=== PATIENT | male | born 1960 | race Caucasian/White ===

== ENCOUNTER 2019-03-29 11:57 | Emergency (ER) | payer BC ==
[2019-03-29] MEDS ORDERED: Aspirin 81 MG Tab.Chew PO ONE (12:13)
--- NOTE | 2019-03-29 12:25 | CR ---
EXAMINATION: Chest 1V Frontal SEX: Male AGE: 58 years CLINICAL HISTORY: 58-year-old male complaining of CHEST PAIN. INTERPRETATION: External monitoring specialist leads. 1. Normal cardiac silhouette without new cephalization of flow, alveolar edema or dependent pleural effusion when compared to 14 May 2007 exam. 2. No new lung mass, hilar lymphadenopathy or focal lobar pneumonia. 3. No atelectasis/collapse. 4. No pleural reactive abnormalities. 5. No pneumothorax, pneumomediastinum or free subdiaphragmatic air. CONCLUSION: Negative exam. No acute new cardiopulmonary abnormality since PA film 14 May 2007.
[2019-03-29 12:40] LABS: CHLORIDE,CL 105 mmol/L (101-111); SODIUM,NA 138 mmol/L (135-145)
--- NOTE | 2019-03-29 13:14 | EDM.PDOC ---
ED HPI GENERAL MEDICAL PROBLEM - General Chief Complaint: Chest Pain Stated Complaint: CHEST PAIN Time Seen by Provider: 03/29/19 12:25 Source of Information: Reports: Patient History Limitations: Reports: No Limitations - History of Present Illness INITIAL COMMENTS - FREE TEXT/NARRATIVE: This 58 yo male patient reports to the ED with intermittent left sided chest pain. The patient reports his symptoms started last (03/24/19) and have been intermittent since that time. The patient reports he was shoveling snow last week before his symptoms started. Today, the patient reports he was at work when his symptoms started as pain in his left upper chest that radiated to his left arm. The patient also reports he has been having some nausea, increased gas and abdominal pain over the past week. Onset Date: 03/24/19 Duration: Intermittent Location: Reports: Chest (left upper chest) Quality: Reports: Ache, Dull Severity: Moderate Improves with: Reports: None Worsens with: Reports: None Context: Reports: Other Associated Symptoms: Reports: No Other Symptoms - Related Data Allergies Allergy/AdvReac Type Severity Reaction Status Date / Time amoxicillin Allergy Mild Rash Verified 03/29/19 12:02 Home Meds: Home Meds Aspirin [Aspirin EC] 325 mg PO DAILY 03/29/19 [History] Enalapril Maleate 5 mg PO DAILY 03/29/19 [History] Fenofibrate Nanocrystallized [Fenofibrate] PO DAILY 03/29/19 [History] Fenofibrate Nanocrystallized [Tricor] 145 mg PO DAILY 03/29/19 [History] Metoprolol Succinate 50 mg PO DAILY 03/29/19 [History] atorvaSTATin Calcium [Atorvastatin Calcium] 10 mg PO DAILY 03/29/19 [History] Past Medical History HEENT History: Reports: Impaired Vision Cardiovascular History: Reports: [place] Respiratory History: Reports: None Gastrointestinal History: Reports: Other (See Below) Other Gastrointestinal History: heartburn Genitourinary History: Reports: None Musculoskeletal History: Reports: Arthritis, Fracture, Other (See Below) Other Musculoskeletal History: Torn bursa in LEFT shoulder with muscle detachment and tears in rotar cuff. RIGHT hand fracture. Neurological History: Reports: Concussion Psychiatric History: Reports: None Endocrine/Metabolic History: Reports: None Hematologic History: Reports: None Immunologic History: Reports: None Oncologic (Cancer) History: Reports: Basal Cell Carcinoma, Squamous Cell Carcinoma Other Oncologic History: nose - Infectious Disease History Infectious Disease History: Reports: Chicken Pox, Mumps - Past Surgical History Head Surgeries/Procedures: Reports: None HEENT Surgical History: Reports: Other (See Below) Other HEENT Surgeries/Procedures: throat-Malik Disease Cardiovascular Surgical History: Reports: Coronary Artery Stent Other Cardiovascular Surgeries/Procedures: [place] x2 Respiratory Surgical History: Reports: None GI Surgical History: Reports: None Neurological Surgical History: Reports: None Other Musculoskeletal Surgeries/Procedures:: LEFT knee surgery, Dermatological Surgical History: Reports: Skin Biopsy Social & Family History - Family History Family Medical History: Noncontributory - Tobacco Use Smoking Status *Q: Current Every Day Smoker Years of Tobacco use: 44 Packs/Tins Daily: 1 Second Hand Smoke Exposure: No - Caffeine Use Caffeine Use: Reports: Soda - Recreational Drug Use Recreational Drug Use: No ED ROS GENERAL - Review of Systems Review Of Systems: Comprehensive ROS is negative, except as noted in HPI. ED EXAM, GENERAL - Physical Exam Exam: See Below Exam Limited By: No Limitations General Appearance: Alert, WD/WN, Mild Distress Eye Exam: Bilateral Eye: EOMI, Normal Inspection, PERRL Ears: Normal External Exam, Normal Canal, Hearing Grossly Normal, Normal TMs Nose: Normal Inspection, Normal Mucosa, No Blood Throat/Mouth: Normal Inspection, Normal Lips, Normal Teeth, Normal Gums, Normal Oropharynx, Normal Voice, No Airway Compromise Head: Atraumatic, Normocephalic Neck: Normal Inspection, Supple, Non-Tender, Full Range of Motion Respiratory/Chest: No Respiratory Distress, Lungs Clear, Normal Breath Sounds, No Accessory Muscle Use, Chest Non-Tender Cardiovascular: Normal Peripheral Pulses, Regular Rate, Rhythm, No Edema, No Gallop, No JVD, No Murmur, No Rub GI/Abdominal: Tender (diffuse abdominal tenderness to palpation), Hernia (Male) Exam: Deferred Rectal (Males) Exam: Deferred Back Exam: Normal Inspection, Full Range of Motion, NT Extremities: Normal Inspection, Normal Range of Motion, Non-Tender, Normal Capillary Refill, No Pedal Edema Neurological: Alert, Oriented, CN II-XII Intact, Normal Cognition, Normal Gait, Normal Reflexes, No Motor/Sensory Deficits Psychiatric: Normal Affect, Normal Mood Skin Exam: Warm, Dry, Intact, Normal Color, No Rash Lymphatic: No Adenopathy Course - Vital Signs Last Recorded V/S: Last Vital Signs Temp 36.6 C 03/29/19 12:07 Pulse 63 03/29/19 12:07 Resp 16 03/29/19 12:07 BP 138/85 03/29/19 12:07 Pulse Ox 96 03/29/19 12:07 - Orders/Labs/Meds Orders: Active Orders 24 hr Category Date Time Status EKG Documentation Completion [RC] URGENT Care 03/29/19 11:58 Ordered Labs: Laboratory Tests 03/29/19 03/29/19 Range/Units 12:02 12:02 WBC 16.3 H (5.0-10.0) 10^3/uL RBC 5.69 (4.6-6.2) 10^6/uL Hgb 17.8 (14.0-18.0) g/dL Hct 51.1 (40.0-54.0) % MCV 89.8 (80-100) fL MCH 31.3 (27.0-34.0) pg MCHC 34.8 (33.0-35.0) g/dL Plt Count 259 (150-450) 10^3/uL Neut % (Auto) 66.3 (42.2-75.2) % Lymph % (Auto) 22.6 (20.5-50.1) % Harlan % (Auto) 9.4 H (2-8) % Eos % (Auto) 1.5 (1.0-3.0) % Baso % (Auto) 0.2 (0.0-1.0) % Sodium 138 (135-145) mmol/L Potassium 4.0 (3.6-5.0) mmol/L Chloride 105 (101-111) mmol/L Carbon Dioxide 25.0 (21.0-31.0) mmol/L Anion Gap 12.0 BUN 17 (7-18) mg/dL Creatinine 0.9 (0.6-1.3) mg/dL Est Cr Clr Drug Dosing 92.38 mL/min Estimated GFR (MDRD) > 60 BUN/Creatinine Ratio 18.88 Glucose 93 (74-105) mg/dL Calcium 9.2 (8.4-10.2) mg/dl Total Bilirubin 0.7 (0.2-1.0) mg/dL AST 23 (10-42) IU/L ALT 20 (10-60) IU/L Alkaline Phosphatase 45 (42-121) IU/L Troponin I < 0.02 (0.00-0.02) ng/ml Total Protein 7.4 (6.7-8.2) g/dl Albumin 4.4 (3.2-5.5) g/dl Globulin 3.0 Albumin/Globulin Ratio 1.47 Meds: Medications Discontinued Medications Generic Name Dose Route Start Last Admin Trade Name Freq PRN Reason Stop Dose Admin Aspirin 324 mg 03/29/19 12:13 03/29/19 12:18 Aspirin PO 03/29/19 12:14 324 mg ONETIME ONE Administration Departure - Departure Time of Disposition: 13:09 Disposition: Home, Self-Care 01 Condition: Fair Clinical Impression: Nonspecific chest pain, PUD (peptic ulcer disease) Instructions: Nonspecific Chest Pain, [id number] Forms: ED Department Discharge Care Plan Goals: The patient and his were advised of the examination, lab, x-ray and EKG results during the visit. The patient was given an oral dose of aspirin while in the ED. The patient was discharged with a script for Omeprazole (20 mg) #30 to take 1 by mouth daily 20-30 minutes before eating. If the patient has any additional symptoms or concerns, the patient should either return to the emergency department or visit his primary care facility. - My Orders Last 24 Hours: My Active Orders 03/29/19 11:58 EKG Documentation Completion [RC] URGENT - Assessment/Plan Last 24 Hours: My Active Orders 03/29/19 11:58 EKG Documentation Completion [RC] URGENT
== END 2019-03-29 13:30 | disposition home or self-care (01) ==
LOC: DL.ED 11:57
DX: R07.9 Chest pain, unspecified (principal); K27.9 Peptic ulcer, site unspecified, unspecified as acute or chronic, without hemorrhage or perforation; I25.2 Old myocardial infarction; F17.210 Nicotine dependence, cigarettes, uncomplicated; Z88.1 Allergy status to other antibiotic agents; Z79.82 Long term (current) use of aspirin; Z95.5 Presence of coronary angioplasty implant and graft
CPT/HCPCS: 36415; 71045; 80053; 84484; 85025; 93005; 99285-25; A9270-GY

== ENCOUNTER 2024-01-12 05:52 | Day surgery (SDC) | payer OTHER ==
[2024-01-12] MEDS ORDERED: fentaNYL 100 MCG/2 ML SDV IV ONE (05:53)
[2024-01-12] MEDS ORDERED: Midazolam 1 MG/ML 2 ML SDV IV ONE (05:53)
[2024-01-12] MEDS: Dextrose 5%-0.45% NaCl 1,000 ML IV SCH (06:09)
[2024-01-12] MEDS ORDERED: Midazolam 1 MG/ML 2 ML SDV ONE (06:28)
[2024-01-12] MEDS ORDERED: fentaNYL 100 MCG/2 ML SDV ONE (06:28)
[2024-01-12] MEDS: fentaNYL 100 MCG/2 ML SDV IV ONE ×2 (06:55)
[2024-01-12] MEDS: Midazolam 1 MG/ML 2 ML SDV IV ONE ×2 (06:56)
== END 2024-01-12 08:14 | disposition home or self-care (01) ==
LOC: DL.ENDO 05:52
PROVIDERS: ATTEND Internal Medicine Gastroenterology
DX: K29.80 Duodenitis without bleeding (principal); I10 Essential (primary) hypertension; E78.5 Hyperlipidemia, unspecified; I25.10 Atherosclerotic heart disease of native coronary artery without angina pectoris; Z95.1 Presence of aortocoronary bypass graft
CPT/HCPCS: 87077; J2250; J3010; J7799

== ENCOUNTER 2024-01-18 05:52 | Day surgery (SDC) | payer OTHER ==
[2024-01-18] MEDS ORDERED: Midazolam 1 MG/ML 2 ML SDV IV ONE (05:53)
[2024-01-18] MEDS ORDERED: fentaNYL 100 MCG/2 ML SDV IV ONE (05:53)
[2024-01-18] MEDS ORDERED: Midazolam 1 MG/ML 2 ML SDV ONE (06:21)
[2024-01-18] MEDS ORDERED: fentaNYL 100 MCG/2 ML SDV ONE (06:22)
[2024-01-18] MEDS: Dextrose 5%-0.45% NaCl 1,000 ML IV SCH (06:24)
[2024-01-18] MEDS: fentaNYL 100 MCG/2 ML SDV IV ONE ×2 (07:01→07:02)
[2024-01-18] MEDS: Midazolam 1 MG/ML 2 ML SDV IV ONE ×6 (07:02→07:17)
== END 2024-01-18 08:39 | disposition home or self-care (01) ==
LOC: DL.ENDO 05:52
PROVIDERS: ATTEND Internal Medicine Gastroenterology
DX: D12.5 Benign neoplasm of sigmoid colon (principal); D12.4 Benign neoplasm of descending colon; K62.1 Rectal polyp; K63.5 Polyp of colon; K62.5 Hemorrhage of anus and rectum; K64.8 Other hemorrhoids; K57.30 Diverticulosis of large intestine without perforation or abscess without bleeding; E66.09 Other obesity due to excess calories; I71.40 Abdominal aortic aneurysm, without rupture, unspecified; I10 Essential (primary) hypertension; I25.10 Atherosclerotic heart disease of native coronary artery without angina pectoris; Z86.010 Personal history of colon polyps; Z68.33 Body mass index [BMI] 33.0-33.9, adult
CPT/HCPCS: J2250; J3010; J7799